=== PATIENT | male | born 1995 | race African-American/Black ===

== ENCOUNTER 2019-08-13 | Emergency (ER) | payer SELFPAY ==
[2019-08-13] MEDS ORDERED: oxyCODONE TAB* 5 MG TAB PO ONE (04:01)
[2019-08-13 04:29] VITALS: BP 121/64
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
== END 2019-08-13 04:28 | disposition home or self-care (01) ==
LOC: ED
DX: S02.5XXA Fracture of tooth (traumatic), initial encounter for closed fracture (principal); S00.83XA Contusion of other part of head, initial encounter; H53.8 Other visual disturbances; Y04.8XXA Assault by other bodily force, initial encounter; Y92.9 Unspecified place or not applicable; Z86.79 Personal history of other diseases of the circulatory system
CPT/HCPCS: 70450; 70486; 99282; A9270-GY